=== PATIENT | male | born 1970 | race Caucasian/White ===

== ENCOUNTER 2017-03-20 06:46 | Emergency (ER) | payer MEDICAID ==
[~2017-03-20 06:46] MED LIST: ARIP20TA PO
== END 2017-03-20 07:23 | disposition left against medical advice (07) ==
LOC: EMS 06:46
DX: Z00.8 Encounter for other general examination (principal); Z53.21 Procedure and treatment not carried out due to patient leaving prior to being seen by health care provider

== ENCOUNTER 2017-05-22 18:36 | Inpatient (IN) | payer MEDICAID ==
[~2017-05-22] VITALS: Ht 182.9 cm; Wt 85.0 kg
[2017-05-22 19:11] LABS: BASOPHILS % (AUTO) 0.9 % (0.0-2.0); EOSINOPHILS % (AUTO) 2.9 % (1.0-6.0); HEMATOCRIT 40.8 % (41-53); HEMOGLOBIN 13.6 g/dL (13.5-17.5); LYMPHOCYTES # (AUTO) 1.3 K/uL (1.0-4.8); LYMPHOCYTES % (AUTO) 21.8 % (22.0-44.0); MEAN CORPUSCULAR HEMOGLOBIN 26.3 pg (26.0-34.0); MEAN CORPUSCULAR HGB CONC 33.4 G/dL (31.0-37.0); MEAN CORPUSCULAR VOLUME 79 fL (80-100); MONOCYTES # (AUTO) 0.4 K/uL (0.1-1.0); MONOCYTES % (AUTO) 7.1 % (2.0-9.0); NEUTROPHILS % (AUTO) 67.3 % (40.0-70.0); PLATELET COUNT (AUTO) 366 K/uL (150-450); RED BLOOD CELL COUNT(AUTO) 5.18 MIL/uL (4.50-5.90); RED CELL DISTRIBUTION WIDTH 17.6 % (11.5-14.5)
[2017-05-22] MEDS ORDERED: SODIUM CHLORIDE 0.9% 1,000 ML IV ONE (19:15)
[2017-05-22] MEDS ORDERED: RISP4 PO (19:20)
[2017-05-22 19:21] LABS: ANION GAP 7 mmol/L (8-16); CALCIUM, TOTAL 8.7 mg/dL (8.8-10.5); CARBON DIOXIDE 30 mmol/L (22-29); CHLORIDE 105 mmol/L (98-107); CREATININE 0.89 mg/dL (0.60-1.30); GLOMERULAR FILTR. RATE CALC > 60 mL/min (>60); GLUCOSE,RANDOM 95 mg/dL (70-110); POTASSIUM 4.3 mmol/L (3.5-5.1); SODIUM SERUM 142 mmol/L (136-145); UREA NITROGEN, BLOOD 14 mg/dL (7-18)
[2017-05-22 19:26] LABS: ALANINE AMINOTRANSFERASE 21 U/L (12-78); ALBUMIN 3.7 g/dL (3.4-5.0); ALKALINE PHOSPHATASE 75 U/L (46-116); ASPARTATE AMINOTRANSFERASE 17 U/L (15-37); BILIRUBIN,TOTAL 0.5 mg/dL (0.1-1.0); TOTAL PROTEIN, SERUM 7.7 g/dL (6.4-8.2)
[2017-05-22] MEDS ORDERED: HALOPERIDOL 5 MG TABLET PO ONE (19:45)
[2017-05-22 19:58] LABS: AMPHET/METH SCREEN,URINE POSITIVE (NEGATIVE); BARBITURATE SCREEN, URINE NEGATIVE (NEGATIVE); BENZODIAZEPINES SCREEN,URINE NEGATIVE (NEGATIVE); CANNABINOID SCREEN,URINE NEGATIVE (NEGATIVE); COCAINE SCREEN,URINE NEGATIVE (NEGATIVE); METHADONE SCREEN, URINE NEGATIVE (NEGATIVE); OPIATE SCREEN,URINE NEGATIVE (NEGATIVE)
[2017-05-22 20:08] LABS: PHENCYCLIDINE SCREEN,URINE NEGATIVE (NEGATIVE)
[2017-05-22] MEDS ORDERED: LORazepam 2 MG TABLET PO PRN (20:15)
[2017-05-22] MEDS ORDERED: HALOPERIDOL 5 MG TABLET PO PRN (20:15)
[2017-05-22] MEDS ORDERED: ZOLPIDEM TARTRATE 10 MG TABLET PO PRN (20:15)
[2017-05-22 21:15] VITALS: BP 113/70
[2017-05-22 22:23] LABS: APPEARANCE,URINE CLEAR (CLEAR); BILIRUBIN,URINE NEGATIVE (NEGATIVE); GLUCOSE, URINE (UA) NEGATIVE (NEGATIVE); KETONES,URINE NEGATIVE (NEGATIVE); LEUKOCYTE ESTERASE ,URINE NEGATIVE (NEGATIVE); NITRATE,URINE NEGATIVE (NEGATIVE); OCCULT BLOOD,URINE NEGATIVE (NEGATIVE); PH,URINE 5.5 (5.0-8.0); PROTEIN,URINE NEGATIVE (NEGATIVE)
[2017-05-23] MEDS: FERROUS SULFATE 325 MG EC TABLET PO SCH ×2 (06:56→17:16)
[2017-05-23 07:58] LABS: CHOL/HDL RATIO 2.3 (4.2-7.3)
[2017-05-23 08:45] VITALS: BP 115/71
[2017-05-23] MEDS: ATORVASTATIN CALCIUM 20 MG TABLET PO SCH (09:20)
[2017-05-23] MEDS: CLOPIDOGREL BISULFATE 75 MG TABLET PO SCH (09:20)
[2017-05-23] MEDS: FAMOTIDINE 20 MG TABLET PO SCH ×2 (09:21→17:16)
[2017-05-23] MEDS ORDERED: ACETAMINOPHEN 325 MG TABLET PO PRN (15:30)
[2017-05-23 20:52] VITALS: BP 110/71
[2017-05-24 01:58] VITALS: BP 121/70
[2017-05-24] MEDS: FERROUS SULFATE 325 MG EC TABLET PO SCH ×2 (06:38→16:56)
[2017-05-24 08:49] VITALS: BP 116/62
[2017-05-24] MEDS: ARIPiprazole 15 MG TABLET PO SCH (10:51)
[2017-05-24] MEDS: FAMOTIDINE 20 MG TABLET PO SCH ×2 (10:51→16:56)
[2017-05-24] MEDS: ATORVASTATIN CALCIUM 20 MG TABLET PO SCH (10:52)
[2017-05-24] MEDS: CLOPIDOGREL BISULFATE 75 MG TABLET PO SCH (10:53)
[2017-05-24 16:52] VITALS: BP 118/65
[2017-05-25] MEDS: FERROUS SULFATE 325 MG EC TABLET PO SCH ×2 (07:03→17:51)
[2017-05-25 09:09] VITALS: BP 124/69
[2017-05-25] MEDS: FAMOTIDINE 20 MG TABLET PO SCH ×2 (09:13→17:51)
[2017-05-25] MEDS: ATORVASTATIN CALCIUM 20 MG TABLET PO SCH (09:13)
[2017-05-25] MEDS: ARIPiprazole 15 MG TABLET PO SCH (09:13)
[2017-05-25] MEDS: CLOPIDOGREL BISULFATE 75 MG TABLET PO SCH (09:14)
[2017-05-25 16:19] VITALS: BP 102/57
[2017-05-26] MEDS: FERROUS SULFATE 325 MG EC TABLET PO SCH ×2 (07:08→17:12)
[2017-05-26] MEDS: CLOPIDOGREL BISULFATE 75 MG TABLET PO SCH (09:29)
[2017-05-26] MEDS: FAMOTIDINE 20 MG TABLET PO SCH ×2 (09:29→17:12)
[2017-05-26] MEDS: ATORVASTATIN CALCIUM 20 MG TABLET PO SCH (09:30)
[2017-05-26] MEDS: ARIPiprazole 15 MG TABLET PO SCH (09:30)
[2017-05-26 09:48] VITALS: BP 119/77
[2017-05-26 16:39] VITALS: BP 116/56
[2017-05-27] MEDS: FERROUS SULFATE 325 MG EC TABLET PO SCH ×2 (06:50→17:33)
[2017-05-27 08:49] VITALS: BP 98/78
[2017-05-27] MEDS: CLOPIDOGREL BISULFATE 75 MG TABLET PO SCH (09:19)
[2017-05-27] MEDS: FAMOTIDINE 20 MG TABLET PO SCH ×2 (09:19→17:33)
[2017-05-27] MEDS: ATORVASTATIN CALCIUM 20 MG TABLET PO SCH (09:19)
[2017-05-27] MEDS: ARIPiprazole 15 MG TABLET PO SCH (09:19)
[2017-05-27 18:00] VITALS: BP 110/72
[2017-05-28] MEDS: FERROUS SULFATE 325 MG EC TABLET PO SCH ×2 (06:48→17:58)
[2017-05-28 08:32] VITALS: BP 104/58
[2017-05-28] MEDS: FAMOTIDINE 20 MG TABLET PO SCH ×2 (09:53→17:00)
[2017-05-28] MEDS: CLOPIDOGREL BISULFATE 75 MG TABLET PO SCH (09:53)
[2017-05-28] MEDS: ATORVASTATIN CALCIUM 20 MG TABLET PO SCH (09:53)
[2017-05-28] MEDS: ARIPiprazole 15 MG TABLET PO SCH (09:53)
[2017-05-28] MEDS ORDERED: ARIP15TA2 PO (17:39)
[2017-05-28] MEDS ORDERED: FERR-89 PO (17:47)
[2017-05-28] MEDS ORDERED: CLOP75 PO (17:47)
[2017-05-28] MEDS ORDERED: FAMO20 PO (17:47)
[2017-05-28] MEDS ORDERED: ATOR20TA86 PO (17:48)
== END 2017-05-28 18:30 | disposition home or self-care (01) | DRG 750 ==
LOC: EMS 18:39 → 3EI 20:30
PROVIDERS: ADMIT Psychiatry & Neurology Psychiatry; ATTEND Psychiatry & Neurology Psychiatry
DX: F25.0 Schizoaffective disorder, bipolar type (principal); R45.851 Suicidal ideations; F32.9 Major depressive disorder, single episode, unspecified; E78.5 Hyperlipidemia, unspecified; F17.210 Nicotine dependence, cigarettes, uncomplicated; F15.90 Other stimulant use, unspecified, uncomplicated; J45.909 Unspecified asthma, uncomplicated; Z86.718 Personal history of other venous thrombosis and embolism; Z88.0 Allergy status to penicillin; Z79.899 Other long term (current) drug therapy; Z90.49 Acquired absence of other specified parts of digestive tract
CPT/HCPCS: 93970; 99285; G0480

== ENCOUNTER 2017-07-31 19:26 | Inpatient (IN) | payer MEDICAID ==
[~2017-07-31] VITALS: Ht 182.9 cm; Wt 90.3 kg
[~2017-07-31 19:26] MED LIST changes: +ARIP15TA2 PO; -ARIP20TA PO; +ATOR20TA86 PO; +CLOP75 PO; +FAMO20 PO; +FERR-89 PO
[2017-07-31] MEDS ORDERED: ZOLPIDEM TARTRATE 10 MG TABLET PO PRN (20:30)
[2017-07-31] MEDS ORDERED: HALOPERIDOL 5 MG TABLET PO PRN (20:30)
[2017-07-31 21:05] VITALS: BP 113/62
[2017-07-31 21:12] VITALS: BP 103/62
[2017-08-01 05:28] VITALS: BP 101/64
[2017-08-01 07:57] LABS: EOSINOPHILS % (AUTO) 5.7 % (1.0-6.0); HEMATOCRIT 40.5 % (41-53); HEMOGLOBIN 13.7 g/dL (13.5-17.5); LYMPHOCYTES # (AUTO) 1.5 K/uL (1.0-4.8); LYMPHOCYTES % (AUTO) 24.7 % (22.0-44.0); MEAN CORPUSCULAR HEMOGLOBIN 27.2 pg (26.0-34.0); MEAN CORPUSCULAR HGB CONC 33.9 G/dL (31.0-37.0); MEAN CORPUSCULAR VOLUME 80 fL (80-100); MONOCYTES # (AUTO) 0.3 K/uL (0.1-1.0); MONOCYTES % (AUTO) 5.1 % (2.0-9.0); NEUTROPHILS # (AUTO) 3.9 K/uL (1.8-7.7); NEUTROPHILS % (AUTO) 63.5 % (40.0-70.0); PLATELET COUNT (AUTO) 420 K/uL (150-450); RED BLOOD CELL COUNT(AUTO) 5.04 MIL/uL (4.50-5.90); RED CELL DISTRIBUTION WIDTH 17.4 % (11.5-14.5)
[2017-08-01 08:16] LABS: HEMOGLOBIN A1C 5.3 % (4.5-6.2)
[2017-08-01 08:23] LABS: ALANINE AMINOTRANSFERASE 18 U/L (12-78); ALBUMIN 2.9 g/dL (3.4-5.0); ALKALINE PHOSPHATASE 72 U/L (46-116); ANION GAP 5 mmol/L (8-16); ASPARTATE AMINOTRANSFERASE 12 U/L (15-37); CALCIUM, TOTAL 8.5 mg/dL (8.8-10.5); CARBON DIOXIDE 31 mmol/L (22-29); CHLORIDE 109 mmol/L (98-107); CHOL/HDL RATIO 3.4 (4.2-7.3); CHOLESTEROL 106 mg/dL (131-200); FREE T4 (FREE THYROXINE) 0.67 ng/dL (0.76-1.46); GLOMERULAR FILTR. RATE CALC > 60 mL/min (>60); GLUCOSE,RANDOM 91 mg/dL (70-110); HDL CHOLESTEROL 31 mg/dL (40-60); LDL CHOL (CALC.) 44 mg/dL (0-130); POTASSIUM 3.5 mmol/L (3.5-5.1); SODIUM SERUM 145 mmol/L (136-145); TOTAL PROTEIN, SERUM 6.8 g/dL (6.4-8.2); TRIGLYCERIDES 156 mg/dL (15-150); UREA NITROGEN, BLOOD 7 mg/dL (7-18)
[2017-08-01 08:33] LABS: BILIRUBIN,TOTAL 0.2 mg/dL (0.1-1.0)
[2017-08-01 08:38] VITALS: BP 108/77
[2017-08-01 08:45] LABS: INR 0.9 (0.9-1.1); PROTHROMBIN TIME 9.9 SEC (9.4-11.6)
[2017-08-01] MEDS: BACITRACIN 28.4 GM OINTMENT TP SCH ×2 (08:46→16:21)
[2017-08-01] MEDS: CLOPIDOGREL BISULFATE 75 MG TABLET PO SCH (12:43)
[2017-08-01] MEDS: FAMOTIDINE 20 MG TABLET PO SCH (16:20)
[2017-08-01 16:36] VITALS: BP 105/68
[2017-08-01] MEDS ORDERED: FAMOTIDINE 20 MG TABLET PO SCH (17:00)
[2017-08-02 06:42] VITALS: BP 121/68
[2017-08-02] MEDS: ARIPiprazole 15 MG TABLET PO SCH (09:14)
[2017-08-02] MEDS: ATORVASTATIN CALCIUM 20 MG TABLET PO SCH (09:14)
[2017-08-02] MEDS: BACITRACIN 28.4 GM OINTMENT TP SCH ×2 (09:15→17:32)
[2017-08-02] MEDS: CLOPIDOGREL BISULFATE 75 MG TABLET PO SCH (09:15)
[2017-08-02] MEDS: FAMOTIDINE 20 MG TABLET PO SCH (09:15)
[2017-08-02 09:44] VITALS: BP 121/60
[2017-08-02] MEDS: LORazepam 2 MG TABLET PO PRN (13:37)
[2017-08-02 16:13] VITALS: BP 114/64
[2017-08-03 07:04] VITALS: BP 121/62
[2017-08-03 08:01] LABS: PROTHROMBIN TIME 10.1 SEC (9.4-11.6)
[2017-08-03 08:16] VITALS: BP 121/65
[2017-08-03] MEDS: LORazepam 2 MG TABLET PO PRN (08:31)
[2017-08-03] MEDS: ARIPiprazole 15 MG TABLET PO SCH (08:31)
[2017-08-03] MEDS: FAMOTIDINE 20 MG TABLET PO SCH (08:31)
[2017-08-03] MEDS: CLOPIDOGREL BISULFATE 75 MG TABLET PO SCH (08:31)
[2017-08-03] MEDS: BACITRACIN 28.4 GM OINTMENT TP SCH ×2 (08:31→16:27)
[2017-08-03] MEDS: ATORVASTATIN CALCIUM 20 MG TABLET PO SCH (08:31)
[2017-08-03 16:30] VITALS: BP 105/63
[2017-08-04 00:15] VITALS: BP 109/72
[2017-08-04 08:26] VITALS: BP 110/70
[2017-08-04 08:30] LABS: PROTHROMBIN TIME 10.2 SEC (9.4-11.6)
[2017-08-04] MEDS: CLOPIDOGREL BISULFATE 75 MG TABLET PO SCH (08:54)
[2017-08-04] MEDS: ARIPiprazole 15 MG TABLET PO SCH (08:54)
[2017-08-04] MEDS: LORazepam 2 MG TABLET PO PRN (08:54)
[2017-08-04] MEDS: FAMOTIDINE 20 MG TABLET PO SCH (08:54)
[2017-08-04] MEDS: BACITRACIN 28.4 GM OINTMENT TP SCH ×2 (08:54→17:10)
[2017-08-04] MEDS: ATORVASTATIN CALCIUM 20 MG TABLET PO SCH (08:54)
[2017-08-04 16:46] VITALS: BP 120/74
[2017-08-05 02:20] VITALS: BP 106/71
[2017-08-05 08:37] VITALS: BP 110/71
[2017-08-05] MEDS: CLOPIDOGREL BISULFATE 75 MG TABLET PO SCH (08:43)
[2017-08-05] MEDS: FAMOTIDINE 20 MG TABLET PO SCH (08:43)
[2017-08-05] MEDS: BACITRACIN 28.4 GM OINTMENT TP SCH ×2 (08:43→16:21)
[2017-08-05] MEDS: ARIPiprazole 15 MG TABLET PO SCH (08:43)
[2017-08-05] MEDS: ATORVASTATIN CALCIUM 20 MG TABLET PO SCH (08:43)
[2017-08-05] MEDS: LORazepam 2 MG TABLET PO PRN (09:13)
[2017-08-05 16:21] VITALS: BP 120/73
[2017-08-06 05:10] VITALS: BP_SYST 115; BP_SYST 120; BP_DIAS 67; BP_DIAS 75
[2017-08-06] MEDS: ATORVASTATIN CALCIUM 20 MG TABLET PO SCH (08:33)
[2017-08-06] MEDS: FAMOTIDINE 20 MG TABLET PO SCH (08:33)
[2017-08-06] MEDS: ARIPiprazole 15 MG TABLET PO SCH (08:33)
[2017-08-06] MEDS: BACITRACIN 28.4 GM OINTMENT TP SCH ×2 (08:33→17:22)
[2017-08-06] MEDS: CLOPIDOGREL BISULFATE 75 MG TABLET PO SCH (08:33)
[2017-08-06 08:42] VITALS: BP 111/71
[2017-08-06 16:33] VITALS: BP 104/60
[2017-08-07 06:50] VITALS: BP 108/64
[2017-08-07] MEDS: CLOPIDOGREL BISULFATE 75 MG TABLET PO SCH (08:41)
[2017-08-07] MEDS: ARIPiprazole 15 MG TABLET PO SCH (08:41)
[2017-08-07] MEDS: ATORVASTATIN CALCIUM 20 MG TABLET PO SCH (08:41)
[2017-08-07 08:46] VITALS: BP 120/75
[2017-08-07] MEDS: FAMOTIDINE 20 MG TABLET PO SCH (08:47)
[2017-08-07] MEDS ORDERED: BACI30OI6 TP (08:52)
[2017-08-07] MEDS ORDERED: FAMO20 PO (08:52)
[2017-08-07] MEDS: BACITRACIN 28.4 GM OINTMENT TP SCH (09:27)
== END 2017-08-07 12:15 | disposition home or self-care (01) | DRG 750 ==
LOC: B2S 20:24
PROVIDERS: ADMIT Psychiatry & Neurology Psychiatry; ATTEND Psychiatry & Neurology Psychiatry
DX: F20.0 Paranoid schizophrenia (principal); Z59.0 Homelessness; J44.9 Chronic obstructive pulmonary disease, unspecified; E78.5 Hyperlipidemia, unspecified; F15.90 Other stimulant use, unspecified, uncomplicated; F19.10 Other psychoactive substance abuse, uncomplicated; F17.200 Nicotine dependence, unspecified, uncomplicated; Z86.718 Personal history of other venous thrombosis and embolism; Z90.49 Acquired absence of other specified parts of digestive tract
CPT/HCPCS: 83036; 84439; 84443

== ENCOUNTER 2017-09-11 12:50 | Inpatient (IN) | payer MEDICAID ==
[~2017-09-11] VITALS: Ht 182.9 cm; Wt 89.8 kg
[~2017-09-11 12:50] MED LIST changes: +BACI30OI6 TP; -FERR-89 PO
[2017-09-11 14:27] LABS: ALANINE AMINOTRANSFERASE 20 U/L (12-78); ALBUMIN 3.3 g/dL (3.4-5.0); ALKALINE PHOSPHATASE 69 U/L (46-116); ANION GAP 6 mmol/L (8-16); ASPARTATE AMINOTRANSFERASE 13 U/L (15-37); BILIRUBIN,TOTAL 0.3 mg/dL (0.1-1.0); CALCIUM, TOTAL 8.4 mg/dL (8.8-10.5); CARBON DIOXIDE 28 mmol/L (22-29); CHLORIDE 108 mmol/L (98-107); CREATININE 0.93 mg/dL (0.60-1.30); GLOMERULAR FILTR. RATE CALC > 60 mL/min (>60); GLUCOSE,RANDOM 121 mg/dL (70-110); POTASSIUM 3.2 mmol/L (3.5-5.1); SODIUM SERUM 142 mmol/L (136-145); TOTAL PROTEIN, SERUM 7.3 g/dL (6.4-8.2); UREA NITROGEN, BLOOD 6 mg/dL (7-18)
[2017-09-11 14:28] LABS: BASOPHILS % (AUTO) 1.1 % (0.0-2.0); EOSINOPHILS % (AUTO) 2.6 % (1.0-6.0); HEMATOCRIT 42.1 % (41-53); HEMOGLOBIN 14.7 g/dL (13.5-17.5); LYMPHOCYTES # (AUTO) 1.3 K/uL (1.0-4.8); LYMPHOCYTES % (AUTO) 21.6 % (22.0-44.0); MEAN CORPUSCULAR HEMOGLOBIN 27.5 pg (26.0-34.0); MEAN CORPUSCULAR HGB CONC 34.8 G/dL (31.0-37.0); MEAN CORPUSCULAR VOLUME 79 fL (80-100); MONOCYTES # (AUTO) 0.2 K/uL (0.1-1.0); MONOCYTES % (AUTO) 4.1 % (2.0-9.0); NEUTROPHILS # (AUTO) 4.3 K/uL (1.8-7.7); NEUTROPHILS % (AUTO) 70.6 % (40.0-70.0); PLATELET COUNT (AUTO) 390 K/uL (150-450); RED BLOOD CELL COUNT(AUTO) 5.34 MIL/uL (4.50-5.90); RED CELL DISTRIBUTION WIDTH 16.5 % (11.5-14.5)
[2017-09-11] MEDS ORDERED: HALOPERIDOL 5 MG TABLET PO PRN (15:30)
[2017-09-11] MEDS ORDERED: LORazepam 2 MG TABLET PO PRN (15:30)
[2017-09-11] MEDS ORDERED: ZOLPIDEM TARTRATE 10 MG TABLET PO PRN (15:30)
[2017-09-11 17:18] LABS: AMPHET/METH SCREEN,URINE NEGATIVE (NEGATIVE); BARBITURATE SCREEN, URINE NEGATIVE (NEGATIVE); BENZODIAZEPINES SCREEN,URINE NEGATIVE (NEGATIVE); CANNABINOID SCREEN,URINE NEGATIVE (NEGATIVE); COCAINE SCREEN,URINE NEGATIVE (NEGATIVE); METHADONE SCREEN, URINE NEGATIVE (NEGATIVE); OPIATE SCREEN,URINE NEGATIVE (NEGATIVE); PHENCYCLIDINE SCREEN,URINE NEGATIVE (NEGATIVE)
[2017-09-11] MEDS ORDERED: POTASSIUM CHLORIDE 10% 40 MEQ/30 ML LIQUID UDCUP PO ONE (19:30)
[2017-09-11] MEDS ORDERED: POTASSIUM CHLORIDE 10% 40 MEQ/30 ML LIQUID UDCUP ONE (19:37)
[2017-09-11] MEDS ORDERED: IBUPROFEN 400 MG TABLET PO ONE (22:45)
[2017-09-12 00:01] VITALS: BP 113/74
[2017-09-12 08:31] VITALS: BP 110/76
[2017-09-12] MEDS: CLOPIDOGREL BISULFATE 75 MG TABLET PO SCH (09:00)
[2017-09-12] MEDS: ATORVASTATIN CALCIUM 20 MG TABLET PO SCH (09:00)
[2017-09-12] MEDS: FAMOTIDINE 20 MG TABLET PO SCH (09:00)
[2017-09-12 16:44] VITALS: BP 109/60
[2017-09-12] MEDS: BACITRACIN 28.4 GM OINTMENT TP SCH (17:44)
[2017-09-12] MEDS ORDERED: DOCUSATE SODIUM 100 MG CAPSULE PO PRN (21:45)
[2017-09-12] MEDS ORDERED: ONDANSETRON HCL 4 MG TABLET PO PRN (21:45)
[2017-09-12] MEDS ORDERED: MAG HYDROX/AL HYDROX/SIMETH ES 30 ML SUSPENSION UDCUP PO PRN (21:45)
[2017-09-12] MEDS ORDERED: PETROLATUM,WHITE 71 GM JELLY TP PRN (21:45)
[2017-09-12] MEDS ORDERED: ALBUTEROL SULFATE HFA 90 MCG/PUFF 8 GM INHALER IH PRN (21:45)
[2017-09-12] MEDS ORDERED: MAGNESIUM HYDROXIDE SUSPENSION 30 ML UDCUP PO PRN (21:45)
[2017-09-12] MEDS ORDERED: ACETAMINOPHEN 325 MG TABLET PO PRN (21:45)
[2017-09-13 05:48] VITALS: BP 118/70
[2017-09-13 08:02] LABS: HEMOGLOBIN A1C 5.6 % (4.5-6.2)
[2017-09-13 08:21] LABS: CHOL/HDL RATIO 3.3 (4.2-7.3); FREE T4 (FREE THYROXINE) 0.58 ng/dL (0.76-1.46); POTASSIUM 4.1 mmol/L (3.5-5.1); THYROID STIMULATING HORMONE 0.69 uIU/mL (0.36-3.74)
[2017-09-13 08:38] VITALS: BP 107/67
[2017-09-13] MEDS: ATORVASTATIN CALCIUM 20 MG TABLET PO SCH (08:49)
[2017-09-13] MEDS: CLOPIDOGREL BISULFATE 75 MG TABLET PO SCH (08:49)
[2017-09-13] MEDS: NICOTINE 14 MG/24 HOUR PATCH TD SCH (08:49)
[2017-09-13] MEDS: FAMOTIDINE 20 MG TABLET PO SCH (08:49)
[2017-09-13] MEDS: BACITRACIN 28.4 GM OINTMENT TP SCH ×2 (08:50→18:10)
[2017-09-13 16:07] VITALS: BP 108/69
[2017-09-14 00:41] VITALS: BP 109/61
[2017-09-14 08:00] VITALS: BP 112/62
[2017-09-14] MEDS: CLOPIDOGREL BISULFATE 75 MG TABLET PO SCH (08:58)
[2017-09-14] MEDS: ATORVASTATIN CALCIUM 20 MG TABLET PO SCH (08:58)
[2017-09-14] MEDS: NICOTINE 14 MG/24 HOUR PATCH TD SCH (08:58)
[2017-09-14] MEDS: ARIPiprazole 15 MG TABLET PO SCH (08:58)
[2017-09-14] MEDS: FAMOTIDINE 20 MG TABLET PO SCH (08:58)
[2017-09-14] MEDS: BACITRACIN 28.4 GM OINTMENT TP SCH ×2 (08:59→17:10)
[2017-09-14 16:17] VITALS: BP 100/60
[2017-09-15 05:42] VITALS: BP 105/60
[2017-09-15 08:23] VITALS: BP 111/65
[2017-09-15] MEDS: FAMOTIDINE 20 MG TABLET PO SCH (09:58)
[2017-09-15] MEDS: ARIPiprazole 15 MG TABLET PO SCH (09:58)
[2017-09-15] MEDS: BACITRACIN 28.4 GM OINTMENT TP SCH ×2 (09:58→16:23)
[2017-09-15] MEDS: ATORVASTATIN CALCIUM 20 MG TABLET PO SCH (09:58)
[2017-09-15] MEDS: CLOPIDOGREL BISULFATE 75 MG TABLET PO SCH (09:58)
[2017-09-15] MEDS: NICOTINE 14 MG/24 HOUR PATCH TD SCH (10:07)
[2017-09-15 16:36] VITALS: BP 109/65
[2017-09-15 21:36] VITALS: BP 110/68
[2017-09-15] MEDS: IBUPROFEN 400 MG TABLET PO PRN (21:36)
[2017-09-16 04:30] VITALS: BP 112/66
[2017-09-16 08:37] VITALS: BP 107/68
[2017-09-16] MEDS: ARIPiprazole 15 MG TABLET PO SCH (08:41)
[2017-09-16] MEDS: NICOTINE 14 MG/24 HOUR PATCH TD SCH (08:41)
[2017-09-16] MEDS: BACITRACIN 28.4 GM OINTMENT TP SCH ×2 (08:41→17:26)
[2017-09-16] MEDS: CLOPIDOGREL BISULFATE 75 MG TABLET PO SCH (08:41)
[2017-09-16] MEDS: ATORVASTATIN CALCIUM 20 MG TABLET PO SCH (08:41)
[2017-09-16] MEDS: FAMOTIDINE 20 MG TABLET PO SCH (08:41)
[2017-09-16 16:06] VITALS: BP 115/62
[2017-09-17 06:46] VITALS: BP 120/72
[2017-09-17 08:33] VITALS: BP 106/66
[2017-09-17] MEDS: FAMOTIDINE 20 MG TABLET PO SCH (09:11)
[2017-09-17] MEDS: ATORVASTATIN CALCIUM 20 MG TABLET PO SCH (09:11)
[2017-09-17] MEDS: BACITRACIN 28.4 GM OINTMENT TP SCH ×2 (09:11→16:07)
[2017-09-17] MEDS: CLOPIDOGREL BISULFATE 75 MG TABLET PO SCH (09:11)
[2017-09-17] MEDS: ARIPiprazole 15 MG TABLET PO SCH (09:11)
[2017-09-17] MEDS: NICOTINE 14 MG/24 HOUR PATCH TD SCH (09:15)
[2017-09-17 16:08] VITALS: BP 110/71
[2017-09-17 18:00] VITALS: BP 114/70
[2017-09-17] MEDS: IBUPROFEN 400 MG TABLET PO PRN (18:00)
[2017-09-18 00:34] VITALS: BP 120/86
[2017-09-18 08:00] VITALS: BP 108/64
[2017-09-18] MEDS: ATORVASTATIN CALCIUM 20 MG TABLET PO SCH (08:33)
[2017-09-18] MEDS: NICOTINE 14 MG/24 HOUR PATCH TD SCH (08:33)
[2017-09-18] MEDS: ARIPiprazole 15 MG TABLET PO SCH (08:33)
[2017-09-18] MEDS: CLOPIDOGREL BISULFATE 75 MG TABLET PO SCH (08:33)
[2017-09-18] MEDS: FAMOTIDINE 20 MG TABLET PO SCH (08:33)
[2017-09-18] MEDS: BACITRACIN 28.4 GM OINTMENT TP SCH ×2 (08:33→17:13)
[2017-09-18 16:33] VITALS: BP 112/63
[2017-09-19 01:37] VITALS: BP 111/60
[2017-09-19 08:00] VITALS: BP 126/71
[2017-09-19] MEDS: NICOTINE 14 MG/24 HOUR PATCH TD SCH (09:00)
[2017-09-19] MEDS: FAMOTIDINE 20 MG TABLET PO SCH (09:45)
[2017-09-19] MEDS: ATORVASTATIN CALCIUM 20 MG TABLET PO SCH (09:45)
[2017-09-19] MEDS: ARIPiprazole 15 MG TABLET PO SCH (09:45)
[2017-09-19] MEDS: BACITRACIN 28.4 GM OINTMENT TP SCH ×2 (09:46→16:03)
[2017-09-19] MEDS: CLOPIDOGREL BISULFATE 75 MG TABLET PO SCH (09:50)
[2017-09-19 16:07] VITALS: BP 109/63
[2017-09-19 18:17] VITALS: BP 112/64
[2017-09-19] MEDS: IBUPROFEN 400 MG TABLET PO PRN (18:17)
[2017-09-20 01:37] VITALS: BP 107/60
[2017-09-20 08:46] VITALS: BP 103/60
[2017-09-20] MEDS: FAMOTIDINE 20 MG TABLET PO SCH (08:56)
[2017-09-20] MEDS: BACITRACIN 28.4 GM OINTMENT TP SCH (08:56)
[2017-09-20] MEDS: ARIPiprazole 15 MG TABLET PO SCH (08:56)
[2017-09-20] MEDS: NICOTINE 14 MG/24 HOUR PATCH TD SCH (08:57)
[2017-09-20] MEDS: CLOPIDOGREL BISULFATE 75 MG TABLET PO SCH (08:57)
[2017-09-20] MEDS: ATORVASTATIN CALCIUM 20 MG TABLET PO SCH (08:57)
== END 2017-09-20 22:08 | disposition home or self-care (01) | DRG 750 ==
LOC: EMS 12:52 → 3EI 19:00 → UNDOADMIN 19:00 → B2S 21:30
PROVIDERS: ADMIT Psychiatry & Neurology Psychiatry; ATTEND Psychiatry & Neurology Psychiatry
DX: F25.9 Schizoaffective disorder, unspecified (principal); J44.9 Chronic obstructive pulmonary disease, unspecified; E03.9 Hypothyroidism, unspecified; E78.5 Hyperlipidemia, unspecified; K21.9 Gastro-esophageal reflux disease without esophagitis; F19.10 Other psychoactive substance abuse, uncomplicated; Z79.51 Long term (current) use of inhaled steroids; E87.6 Hypokalemia; F15.90 Other stimulant use, unspecified, uncomplicated; F41.9 Anxiety disorder, unspecified; F17.210 Nicotine dependence, cigarettes, uncomplicated; Z71.6 Tobacco abuse counseling; Z86.718 Personal history of other venous thrombosis and embolism; Z71.51 Drug abuse counseling and surveillance of drug abuser; Z79.899 Other long term (current) drug therapy; Z90.49 Acquired absence of other specified parts of digestive tract; Z88.0 Allergy status to penicillin
CPT/HCPCS: 83036; 84132; 84439; 84443; 99285; G0480

== ENCOUNTER 2018-04-07 18:01 | Emergency (ER) | payer MEDICAID, OTHER ==
[~2018-04-07 18:01] MED LIST changes: -BACI30OI6 TP
[2018-04-07 19:01] LABS: BASOPHILS % (AUTO) 0.7 % (0.0-2.0); HEMATOCRIT 39.6 % (41-53); HEMOGLOBIN 13.1 g/dL (13.5-17.5); LYMPHOCYTES # (AUTO) 1.5 K/uL (1.0-4.8); LYMPHOCYTES % (AUTO) 16.3 % (22.0-44.0); MEAN CORPUSCULAR HEMOGLOBIN 26.7 pg (26.0-34.0); MEAN CORPUSCULAR HGB CONC 33.1 G/dL (31.0-37.0); MEAN CORPUSCULAR VOLUME 81 fL (80-100); MONOCYTES # (AUTO) 0.7 K/uL (0.1-1.0); PLATELET COUNT (AUTO) 469 K/uL (150-450); RED BLOOD CELL COUNT(AUTO) 4.92 MIL/uL (4.50-5.90); RED CELL DISTRIBUTION WIDTH 15.8 % (11.5-14.5)
[2018-04-07 19:28] LABS: ANION GAP 8 mmol/L (8-16); CALCIUM, TOTAL 8.8 mg/dL (8.8-10.5); CARBON DIOXIDE 31 mmol/L (22-29); CHLORIDE 105 mmol/L (98-107); CREATININE 0.84 mg/dL (0.60-1.30); GLOMERULAR FILTR. RATE CALC > 60 mL/min (>60); GLUCOSE,RANDOM 116 mg/dL (70-110); POTASSIUM 3.8 mmol/L (3.5-5.1); SODIUM SERUM 144 mmol/L (136-145); UREA NITROGEN, BLOOD 10 mg/dL (7-18)
[2018-04-07 19:33] LABS: ALANINE AMINOTRANSFERASE 14 U/L (12-78); ALBUMIN 3.1 g/dL (3.4-5.0); ALKALINE PHOSPHATASE 89 U/L (46-116); ASPARTATE AMINOTRANSFERASE 13 U/L (15-37); BILIRUBIN,TOTAL 0.2 mg/dL (0.1-1.0); TOTAL PROTEIN, SERUM 7.5 g/dL (6.4-8.2)
[2018-04-07] MEDS ORDERED: ASPI81 PO (22:49)
[2018-04-07] MEDS ORDERED: TAMS0.4C32 PO (22:49)
[2018-04-08] MEDS ORDERED: ARIP5TAB8 PO (13:07)
== END 2018-04-07 22:04 | disposition left against medical advice (07) ==
LOC: EMS 18:02
DX: F29 Unspecified psychosis not due to a substance or known physiological condition (principal); Z53.21 Procedure and treatment not carried out due to patient leaving prior to being seen by health care provider
CPT/HCPCS: 36415; 80053; 85025; G0480

== ENCOUNTER 2018-04-07 22:41 | Inpatient (IN) | payer MEDICAID, OTHER ==
[~2018-04-07] VITALS: Ht 182.9 cm; Wt 86.3 kg
[2018-04-07] MEDS ORDERED: TAMS0.4C32 PO (22:49)
[2018-04-07] MEDS ORDERED: ASPI81 PO (22:49)
[2018-04-07 23:21] LABS: AMPHET/METH SCREEN,URINE POSITIVE (NEGATIVE); BARBITURATE SCREEN, URINE NEGATIVE (NEGATIVE); BENZODIAZEPINES SCREEN,URINE NEGATIVE (NEGATIVE); CANNABINOID SCREEN,URINE NEGATIVE (NEGATIVE); COCAINE SCREEN,URINE NEGATIVE (NEGATIVE); METHADONE SCREEN, URINE NEGATIVE (NEGATIVE); OPIATE SCREEN,URINE NEGATIVE (NEGATIVE); PHENCYCLIDINE SCREEN,URINE NEGATIVE (NEGATIVE)
[2018-04-08] MEDS ORDERED: ZOLPIDEM TARTRATE 10 MG TABLET PO PRN (03:15)
[2018-04-08] MEDS ORDERED: CEPHALEXIN MONOHYDRATE 500 MG CAPSULE PO ONE (03:30)
[2018-04-08] MEDS ORDERED: DOXYCYCLINE HYCLATE 100 MG CAPSULE PO ONE (03:30)
[2018-04-08 06:22] VITALS: BP 110/59
[2018-04-08 07:57] VITALS: BP 120/64
[2018-04-08] MEDS: LORazepam 2 MG TABLET PO PRN ×2 (08:30→12:37)
[2018-04-08] MEDS: HALOPERIDOL 5 MG TABLET PO PRN ×2 (08:30→12:37)
[2018-04-08 09:03] VITALS: BP 120/64
[2018-04-08] MEDS ORDERED: ARIP5TAB8 PO (13:07)
[2018-04-08] MEDS ORDERED: OLANZapine 5 MG RAPDIS TABLET PO PRN (13:15)
[2018-04-08] MEDS ORDERED: ACETAMINOPHEN 325 MG TABLET PO PRN (13:15)
[2018-04-08] MEDS ORDERED: HydrOXYzine PAMOATE 50 MG CAPSULE PO PRN (13:15)
[2018-04-08] MEDS ORDERED: MAG HYDROX/AL HYDROX/SIMETH ES 30 ML SUSPENSION UDCUP PO PRN (13:15)
[2018-04-08] MEDS ORDERED: TUBERCULIN, PURIFIED PROTEIN DERIVATIVE 5 TU/0.1 ML SYG ID ONE (13:15)
[2018-04-08] MEDS ORDERED: MAGNESIUM HYDROXIDE SUSPENSION 30 ML UDCUP PO PRN (13:15)
[2018-04-08] MEDS ORDERED: LOPERAMIDE HCL 2 MG CAPSULE PO PRN (13:15)
[2018-04-08] MEDS ORDERED: GuaiFENesin/D-METHORPHAN [SUGAR-FREE] 200-20MG/10 ML SYRUP UDCUP PO PRN (13:15)
[2018-04-08] MEDS ORDERED: PROMETHAZINE HCL 25 MG TABLET PO PRN (13:15)
[2018-04-08 20:14] VITALS: BP 101/68
[2018-04-08] MEDS ORDERED: OLANZapine 5 MG RAPDIS TABLET PO SCH (21:00)
[2018-04-08] MEDS: THIAMINE HCL 100 MG TABLET PO SCH (21:56)
[2018-04-08] MEDS: DIVALPROEX SODIUM 500 MG ER TABLET PO SCH (21:56)
[2018-04-09 00:30] VITALS: BP 108/64
[2018-04-09 09:21] VITALS: BP 109/60
[2018-04-09] MEDS: THIAMINE HCL 100 MG TABLET PO SCH ×2 (09:27→16:22)
[2018-04-09] MEDS: MULTIVITAMINS WITH MINERALS, THERAPEUTIC TABLET PO SCH (09:27)
[2018-04-09] MEDS: NALTREXONE HCL 50 MG TABLET PO SCH (09:27)
[2018-04-09] MEDS: FOLIC ACID 1 MG TABLET PO SCH (09:27)
[2018-04-09 16:21] VITALS: BP 110/68
[2018-04-09] MEDS: DIVALPROEX SODIUM 500 MG ER TABLET PO SCH (20:25)
[2018-04-09] MEDS: OLANZapine 10 MG RAPDIS TABLET PO SCH (20:26)
[2018-04-10 02:01] VITALS: BP 108/70
[2018-04-10] MEDS: MULTIVITAMINS WITH MINERALS, THERAPEUTIC TABLET PO SCH (09:44)
[2018-04-10] MEDS: THIAMINE HCL 100 MG TABLET PO SCH ×2 (09:44→16:22)
[2018-04-10] MEDS: FOLIC ACID 1 MG TABLET PO SCH (09:44)
[2018-04-10] MEDS: NALTREXONE HCL 50 MG TABLET PO SCH (09:45)
[2018-04-10 16:50] VITALS: BP 108/69
[2018-04-10] MEDS: OLANZapine 10 MG RAPDIS TABLET PO SCH (20:28)
[2018-04-10] MEDS: DIVALPROEX SODIUM 500 MG ER TABLET PO SCH (20:28)
[2018-04-11 01:10] VITALS: BP 103/60
[2018-04-11] MEDS: THIAMINE HCL 100 MG TABLET PO SCH ×2 (08:47→16:22)
[2018-04-11] MEDS: FOLIC ACID 1 MG TABLET PO SCH (08:47)
[2018-04-11] MEDS: NALTREXONE HCL 50 MG TABLET PO SCH (08:47)
[2018-04-11] MEDS: MULTIVITAMINS WITH MINERALS, THERAPEUTIC TABLET PO SCH (08:47)
[2018-04-11 16:30] VITALS: BP 110/60
[2018-04-11] MEDS: DIVALPROEX SODIUM 500 MG ER TABLET PO SCH (20:19)
[2018-04-11] MEDS: OLANZapine 10 MG RAPDIS TABLET PO SCH (20:19)
[2018-04-12 03:54] VITALS: BP 111/63
[2018-04-12 08:52] VITALS: BP 110/64
[2018-04-12] MEDS: FOLIC ACID 1 MG TABLET PO SCH (08:59)
[2018-04-12] MEDS: THIAMINE HCL 100 MG TABLET PO SCH ×2 (08:59→16:42)
[2018-04-12] MEDS: MULTIVITAMINS WITH MINERALS, THERAPEUTIC TABLET PO SCH (08:59)
[2018-04-12] MEDS: NALTREXONE HCL 50 MG TABLET PO SCH (08:59)
[2018-04-12 17:48] VITALS: BP 104/62
[2018-04-12] MEDS: OLANZapine 10 MG RAPDIS TABLET PO SCH (20:12)
[2018-04-12] MEDS: DIVALPROEX SODIUM 500 MG ER TABLET PO SCH (20:12)
[2018-04-13 05:58] VITALS: BP 110/70
[2018-04-13 07:40] LABS: BASOPHILS % (AUTO) 0.8 % (0.0-2.0); EOSINOPHILS % (AUTO) 5.2 % (1.0-6.0); HEMATOCRIT 40.6 % (41-53); HEMOGLOBIN 13.5 g/dL (13.5-17.5); LYMPHOCYTES # (AUTO) 1.4 K/uL (1.0-4.8); LYMPHOCYTES % (AUTO) 26.6 % (22.0-44.0); MEAN CORPUSCULAR HGB CONC 33.3 G/dL (31.0-37.0); MEAN CORPUSCULAR VOLUME 81 fL (80-100); MONOCYTES # (AUTO) 0.3 K/uL (0.1-1.0); MONOCYTES % (AUTO) 4.9 % (2.0-9.0); NEUTROPHILS # (AUTO) 3.4 K/uL (1.8-7.7); NEUTROPHILS % (AUTO) 62.5 % (40.0-70.0); PLATELET COUNT (AUTO) 435 K/uL (150-450); RED BLOOD CELL COUNT(AUTO) 4.99 MIL/uL (4.50-5.90); RED CELL DISTRIBUTION WIDTH 15.8 % (11.5-14.5)
[2018-04-13 07:49] LABS: HEMOGLOBIN A1C 5.6 % (4.5-6.2)
[2018-04-13 08:07] LABS: ALANINE AMINOTRANSFERASE 11 U/L (12-78); ALBUMIN 2.8 g/dL (3.4-5.0); ALKALINE PHOSPHATASE 69 U/L (46-116); ANION GAP 3 mmol/L (8-16); ASPARTATE AMINOTRANSFERASE 10 U/L (15-37); BILIRUBIN,TOTAL 0.2 mg/dL (0.1-1.0); CALCIUM, TOTAL 8.7 mg/dL (8.8-10.5); CARBON DIOXIDE 33 mmol/L (22-29); CHLORIDE 105 mmol/L (98-107); CHOL/HDL RATIO 3.4 (4.2-7.3); CHOLESTEROL 116 mg/dL (131-200); CREATININE 0.78 mg/dL (0.60-1.30); FREE T4 (FREE THYROXINE) 0.68 ng/dL (0.76-1.46); GLOMERULAR FILTR. RATE CALC > 60 mL/min (>60); GLUCOSE,RANDOM 107 mg/dL (70-110); HDL CHOLESTEROL 34 mg/dL (40-60); LDL CHOL (CALC.) 60 mg/dL (0-130); POTASSIUM 3.9 mmol/L (3.5-5.1); SODIUM SERUM 141 mmol/L (136-145); TOTAL PROTEIN, SERUM 7.1 g/dL (6.4-8.2); TRIGLYCERIDES 110 mg/dL (15-150); UREA NITROGEN, BLOOD 15 mg/dL (7-18)
[2018-04-13 08:43] VITALS: BP 118/64
[2018-04-13] MEDS: MULTIVITAMINS WITH MINERALS, THERAPEUTIC TABLET PO SCH ×2 (08:51→08:59)
[2018-04-13] MEDS: THIAMINE HCL 100 MG TABLET PO SCH ×3 (08:51→16:06)
[2018-04-13] MEDS: FOLIC ACID 1 MG TABLET PO SCH ×2 (08:51→08:59)
[2018-04-13] MEDS: NALTREXONE HCL 50 MG TABLET PO SCH ×2 (08:51→08:59)
[2018-04-13 16:29] VITALS: BP 100/62
[2018-04-13] MEDS: DIVALPROEX SODIUM 500 MG ER TABLET PO SCH (20:41)
[2018-04-13] MEDS: OLANZapine 10 MG RAPDIS TABLET PO SCH (20:41)
[2018-04-14 06:27] VITALS: BP 106/72
[2018-04-14] MEDS: THIAMINE HCL 100 MG TABLET PO SCH ×2 (08:59→17:02)
[2018-04-14] MEDS: MULTIVITAMINS WITH MINERALS, THERAPEUTIC TABLET PO SCH (08:59)
[2018-04-14] MEDS: NALTREXONE HCL 50 MG TABLET PO SCH (08:59)
[2018-04-14] MEDS: FOLIC ACID 1 MG TABLET PO SCH (08:59)
[2018-04-14 16:16] VITALS: BP 111/70
[2018-04-14] MEDS: DIVALPROEX SODIUM 500 MG ER TABLET PO SCH (20:26)
[2018-04-14] MEDS: OLANZapine 10 MG RAPDIS TABLET PO SCH (20:27)
[2018-04-14 20:57] VITALS: BP 112/66
[2018-04-15 00:54] VITALS: BP 102/64
[2018-04-15 08:39] VITALS: BP 103/61
[2018-04-15] MEDS: MULTIVITAMINS WITH MINERALS, THERAPEUTIC TABLET PO SCH (09:45)
[2018-04-15] MEDS: THIAMINE HCL 100 MG TABLET PO SCH ×2 (09:45→16:20)
[2018-04-15] MEDS: NALTREXONE HCL 50 MG TABLET PO SCH (09:45)
[2018-04-15] MEDS: FOLIC ACID 1 MG TABLET PO SCH (09:45)
[2018-04-15 16:29] VITALS: BP 104/60
[2018-04-15] MEDS: DIVALPROEX SODIUM 500 MG ER TABLET PO SCH (20:12)
[2018-04-15 20:13] VITALS: BP 110/64
[2018-04-15] MEDS: OLANZapine 10 MG RAPDIS TABLET PO SCH (20:13)
[2018-04-16 00:26] VITALS: BP 128/72
[2018-04-16 09:35] VITALS: BP 120/79
[2018-04-16] MEDS: MULTIVITAMINS WITH MINERALS, THERAPEUTIC TABLET PO SCH (09:47)
[2018-04-16] MEDS: NALTREXONE HCL 50 MG TABLET PO SCH (09:47)
[2018-04-16] MEDS: FOLIC ACID 1 MG TABLET PO SCH (09:47)
[2018-04-16] MEDS: THIAMINE HCL 100 MG TABLET PO SCH ×2 (09:47→16:29)
[2018-04-16 16:11] VITALS: BP 126/82
[2018-04-16] MEDS: DIVALPROEX SODIUM 500 MG ER TABLET PO SCH (20:04)
[2018-04-16] MEDS: OLANZapine 10 MG RAPDIS TABLET PO SCH (20:04)
[2018-04-17 00:48] VITALS: BP 105/62
[2018-04-17] MEDS: THIAMINE HCL 100 MG TABLET PO SCH (08:27)
[2018-04-17] MEDS: FOLIC ACID 1 MG TABLET PO SCH (08:27)
[2018-04-17] MEDS: NALTREXONE HCL 50 MG TABLET PO SCH (08:27)
[2018-04-17] MEDS: MULTIVITAMINS WITH MINERALS, THERAPEUTIC TABLET PO SCH (08:27)
[2018-04-17 08:30] VITALS: BP 119/67
[2018-04-17] MEDS ORDERED: DIVA-78 PO (11:59)
[2018-04-17] MEDS ORDERED: OLAN10TA3 PO (11:59)
[2018-04-17] MEDS ORDERED: NALT50TA6 PO (11:59)
== END 2018-04-17 12:40 | disposition home or self-care (01) | DRG 750 ==
LOC: EMS 22:41 → AHU 04-08 05:30 → B2S 04-08 19:59
PROVIDERS: ADMIT Psychiatry & Neurology Psychiatry; ATTEND Psychiatry & Neurology Psychiatry
DX: F25.9 Schizoaffective disorder, unspecified (principal); R45.851 Suicidal ideations; Z59.0 Homelessness; E78.5 Hyperlipidemia, unspecified; F15.10 Other stimulant abuse, uncomplicated; L03.114 Cellulitis of left upper limb; F17.210 Nicotine dependence, cigarettes, uncomplicated; J45.909 Unspecified asthma, uncomplicated; Z88.0 Allergy status to penicillin
CPT/HCPCS: 10060; 83036; 84439; 84443

== ENCOUNTER 2018-05-27 03:48 | Inpatient (IN) | payer MEDICAID ==
[~2018-05-27] VITALS: Ht 182.9 cm; Wt 91.5 kg
[~2018-05-27 03:48] MED LIST changes: -ARIP15TA2 PO; -ATOR20TA86 PO; -CLOP75 PO; +DIVA-78 PO; -FAMO20 PO; +NALT50TA6 PO; +OLAN10TA3 PO
[2018-05-27] MEDS ORDERED: ZOLPIDEM TARTRATE 10 MG TABLET PO PRN (04:15)
[2018-05-27] MEDS ORDERED: LORazepam 2 MG TABLET PO PRN (04:15)
[2018-05-27] MEDS ORDERED: HALOPERIDOL 5 MG TABLET PO PRN (04:15)
[2018-05-27 06:45] VITALS: BP 122/78
[2018-05-27 08:38] VITALS: BP 115/67
[2018-05-27] MEDS ORDERED: PNEUMOCOCCAL VACCINE POLYVALENT 0.5 ML VIAL [PPSV23] IM ONE (09:15)
[2018-05-27] MEDS ORDERED: OLANZapine 5 MG RAPDIS TABLET PO PRN (13:30)
[2018-05-27] MEDS ORDERED: PROMETHAZINE HCL 25 MG TABLET PO PRN (13:30)
[2018-05-27] MEDS ORDERED: IBUPROFEN 600 MG TABLET PO PRN (13:30)
[2018-05-27] MEDS ORDERED: CYANOCOBALAMIN 1,000 MCG/ML VIAL IM ONE (13:30)
[2018-05-27] MEDS ORDERED: ACETAMINOPHEN 325 MG TABLET PO PRN (13:30)
[2018-05-27] MEDS ORDERED: HydrOXYzine PAMOATE 50 MG CAPSULE PO PRN ×2 (13:30)
[2018-05-27] MEDS ORDERED: GuaiFENesin/D-METHORPHAN [SUGAR-FREE] 200-20MG/10 ML SYRUP UDCUP PO PRN (13:30)
[2018-05-27] MEDS ORDERED: MAGNESIUM HYDROXIDE SUSPENSION 30 ML UDCUP PO PRN (13:30)
[2018-05-27] MEDS ORDERED: LOPERAMIDE HCL 2 MG CAPSULE PO PRN (13:30)
[2018-05-27] MEDS ORDERED: MAG HYDROX/AL HYDROX/SIMETH ES 30 ML SUSPENSION UDCUP PO PRN ×2 (13:30)
[2018-05-27] MEDS ORDERED: CloNIDine HCL 0.1 MG TABLET PO PRN (13:30)
[2018-05-27 13:41] VITALS: BP 133/70
[2018-05-27 16:00] VITALS: BP 132/66
[2018-05-27 16:30] VITALS: BP 132/66
[2018-05-27] MEDS: ACAMPROSATE CALCIUM 333 MG DR TABLET PO SCH (16:40)
[2018-05-27] MEDS: THIAMINE HCL 100 MG TABLET PO SCH (16:40)
[2018-05-27] MEDS: CloNIDine HCL 0.1 MG TABLET PO SCH ×2 (16:40→22:01)
[2018-05-27 20:00] VITALS: BP 105/68
[2018-05-27] MEDS: DIVALPROEX SODIUM 500 MG ER TABLET PO SCH (20:46)
[2018-05-27] MEDS ORDERED: OLANZapine 5 MG RAPDIS TABLET PO SCH (21:00)
[2018-05-28] VITALS (7 sets, daily range): BP systolic 116–138; BP diastolic 58–82
[2018-05-28] MEDS: CloNIDine HCL 0.1 MG TABLET PO SCH ×4 (06:35→22:21)
[2018-05-28] MEDS: MULTIVITAMINS WITH MINERALS, THERAPEUTIC TABLET PO SCH (09:48)
[2018-05-28] MEDS: ACAMPROSATE CALCIUM 333 MG DR TABLET PO SCH ×3 (09:48→16:43)
[2018-05-28] MEDS: FOLIC ACID 1 MG TABLET PO SCH (09:50)
[2018-05-28] MEDS: THIAMINE HCL 100 MG TABLET PO SCH ×2 (09:50→16:43)
[2018-05-28] MEDS: OLANZapine 10 MG RAPDIS TABLET PO SCH (20:11)
[2018-05-28] MEDS: DIVALPROEX SODIUM 500 MG ER TABLET PO SCH (20:11)
[2018-05-29] MEDS: CloNIDine HCL 0.1 MG TABLET PO SCH ×4 (06:00→22:00)
[2018-05-29 06:10] VITALS: BP 116/56
[2018-05-29 08:32] LABS: BASOPHILS % (AUTO) 0.7 % (0.0-2.0); EOSINOPHILS % (AUTO) 4.5 % (1.0-6.0); HEMOGLOBIN 12.7 g/dL (13.5-17.5); LYMPHOCYTES # (AUTO) 0.9 K/uL (1.0-4.8); LYMPHOCYTES % (AUTO) 13.6 % (22.0-44.0); MEAN CORPUSCULAR HEMOGLOBIN 26.6 pg (26.0-34.0); MEAN CORPUSCULAR HGB CONC 33.3 G/dL (31.0-37.0); MEAN CORPUSCULAR VOLUME 80 fL (80-100); MONOCYTES # (AUTO) 0.4 K/uL (0.1-1.0); MONOCYTES % (AUTO) 6.4 % (2.0-9.0); NEUTROPHILS # (AUTO) 4.8 K/uL (1.8-7.7); NEUTROPHILS % (AUTO) 74.8 % (40.0-70.0); PLATELET COUNT (AUTO) 414 K/uL (150-450); RED BLOOD CELL COUNT(AUTO) 4.76 MIL/uL (4.50-5.90); RED CELL DISTRIBUTION WIDTH 16.6 % (11.5-14.5)
[2018-05-29 08:54] LABS: HEMOGLOBIN A1C 5.4 % (4.5-6.2)
[2018-05-29] MEDS: MULTIVITAMINS WITH MINERALS, THERAPEUTIC TABLET PO SCH (09:01)
[2018-05-29] MEDS: FOLIC ACID 1 MG TABLET PO SCH (09:02)
[2018-05-29] MEDS: THIAMINE HCL 100 MG TABLET PO SCH ×2 (09:02→16:57)
[2018-05-29 09:09] LABS: ALANINE AMINOTRANSFERASE 12 U/L (12-78); ALBUMIN 2.9 g/dL (3.4-5.0); ALKALINE PHOSPHATASE 78 U/L (46-116); ANION GAP 4 mmol/L (8-16); ASPARTATE AMINOTRANSFERASE 12 U/L (15-37); BILIRUBIN,TOTAL 0.3 mg/dL (0.1-1.0); CALCIUM, TOTAL 8.5 mg/dL (8.8-10.5); CARBON DIOXIDE 31 mmol/L (22-29); CHLORIDE 105 mmol/L (98-107); CHOLESTEROL 97 mg/dL (131-200); CREATININE 0.66 mg/dL (0.60-1.30); FREE T4 (FREE THYROXINE) 0.94 ng/dL (0.76-1.46); GLOMERULAR FILTR. RATE CALC > 60 mL/min (>60); GLUCOSE,RANDOM 79 mg/dL (70-110); HDL CHOLESTEROL 32 mg/dL (40-60); LDL CHOL (CALC.) 54 mg/dL (0-130); SODIUM SERUM 140 mmol/L (136-145); THYROID STIMULATING HORMONE 0.75 uIU/mL (0.36-3.74); TOTAL PROTEIN, SERUM 6.9 g/dL (6.4-8.2); TRIGLYCERIDES 54 mg/dL (15-150); UREA NITROGEN, BLOOD 11 mg/dL (7-18); VALPROIC ACID 59 mcg/mL (50-100)
[2018-05-29] MEDS: ACAMPROSATE CALCIUM 333 MG DR TABLET PO SCH ×3 (10:05→16:57)
[2018-05-29 12:18] VITALS: BP 121/72
[2018-05-29] MEDS ORDERED: DIVA500T52 PO (14:22)
[2018-05-29] MEDS ORDERED: OLAN10TA22 PO (14:22)
[2018-05-29] MEDS ORDERED: ACAM333T7 PO (14:22)
[2018-05-29 16:00] VITALS: BP 111/66
[2018-05-29 16:01] VITALS: BP 111/66
[2018-05-29] MEDS: DIVALPROEX SODIUM 500 MG ER TABLET PO SCH (20:41)
[2018-05-29] MEDS: OLANZapine 10 MG RAPDIS TABLET PO SCH (20:41)
[2018-05-30] MEDS: CloNIDine HCL 0.1 MG TABLET PO SCH ×2 (06:00→12:06)
[2018-05-30] MEDS: MULTIVITAMINS WITH MINERALS, THERAPEUTIC TABLET PO SCH (08:18)
[2018-05-30] MEDS: ACAMPROSATE CALCIUM 333 MG DR TABLET PO SCH ×2 (08:18→12:06)
[2018-05-30] MEDS: THIAMINE HCL 100 MG TABLET PO SCH (08:18)
[2018-05-30] MEDS: FOLIC ACID 1 MG TABLET PO SCH (08:18)
[2018-05-30 08:34] VITALS: BP 101/65
[2018-05-30 08:36] VITALS: BP 101/65
[2018-05-30] MEDS ORDERED: OLAN10TA3 PO (08:51)
[2018-05-30] MEDS ORDERED: ACAM333T7 PO (08:51)
[2018-05-30] MEDS ORDERED: LOPERAMIDE HCL 2 MG CAPSULE PO PRN (13:30)
== END 2018-05-30 12:15 | disposition home or self-care (01) | DRG 750 ==
LOC: B3A 04:30 → EDSTATUS 04:42
PROVIDERS: ADMIT Psychiatry & Neurology Psychiatry; ATTEND Psychiatry & Neurology Psychiatry
DX: F25.9 Schizoaffective disorder, unspecified (principal); Z59.0 Homelessness; E78.5 Hyperlipidemia, unspecified; F17.210 Nicotine dependence, cigarettes, uncomplicated; F60.0 Paranoid personality disorder; J45.909 Unspecified asthma, uncomplicated; Z86.718 Personal history of other venous thrombosis and embolism; Z90.49 Acquired absence of other specified parts of digestive tract; Z88.0 Allergy status to penicillin; Z91.19 Patient's noncompliance with other medical treatment and regimen
CPT/HCPCS: 83036; 84439; 84443; J3420

== ENCOUNTER 2018-06-21 09:14 | Inpatient (IN) | payer MEDICAID ==
[~2018-06-21] VITALS: Ht 185.4 cm; Wt 91.4 kg
[~2018-06-21 09:14] MED LIST changes: +ACAM333T7 PO; +DIVA500T52 PO; +OLAN10TA22 PO
[2018-06-21 10:26] VITALS: BP 101/64
[2018-06-21] MEDS ORDERED: ZOLPIDEM TARTRATE 10 MG TABLET PO PRN (10:45)
[2018-06-21] MEDS ORDERED: LORazepam 2 MG TABLET PO PRN (10:45)
[2018-06-21] MEDS ORDERED: HALOPERIDOL 5 MG TABLET PO PRN (11:00)
[2018-06-21] MEDS ORDERED: OLAN10TA3 PO (11:06)
[2018-06-21] MEDS ORDERED: NALT50TA6 PO (11:06)
[2018-06-21] MEDS ORDERED: DIVA-78 PO (11:06)
[2018-06-21] MEDS ORDERED: ACAM333T7 PO (11:06)
[2018-06-21 13:00] VITALS: BP 112/70
[2018-06-21] MEDS: ACAMPROSATE CALCIUM 333 MG DR TABLET PO SCH (16:24)
[2018-06-21 16:37] VITALS: BP 113/65
[2018-06-21] MEDS: OLANZapine 10 MG TABLET PO SCH (20:52)
[2018-06-21] MEDS: DIVALPROEX SODIUM 500 MG DR TABLET PO SCH (20:52)
[2018-06-22 08:02] LABS: HEMATOCRIT 39.1 % (41-53); HEMOGLOBIN 12.8 g/dL (13.5-17.5); LYMPHOCYTES # (AUTO) 1.4 K/uL (1.0-4.8); LYMPHOCYTES % (AUTO) 27.5 % (22.0-44.0); MEAN CORPUSCULAR HEMOGLOBIN 26.3 pg (26.0-34.0); MEAN CORPUSCULAR HGB CONC 32.8 G/dL (31.0-37.0); MEAN CORPUSCULAR VOLUME 80 fL (80-100); MONOCYTES # (AUTO) 0.4 K/uL (0.1-1.0); MONOCYTES % (AUTO) 7.2 % (2.0-9.0); NEUTROPHILS # (AUTO) 2.9 K/uL (1.8-7.7); NEUTROPHILS % (AUTO) 59.3 % (40.0-70.0); PLATELET COUNT (AUTO) 308 K/uL (150-450); RED BLOOD CELL COUNT(AUTO) 4.88 MIL/uL (4.50-5.90); RED CELL DISTRIBUTION WIDTH 16.8 % (11.5-14.5)
[2018-06-22 08:31] LABS: APPEARANCE,URINE CLOUDY (CLEAR); GLUCOSE, URINE (UA) NEGATIVE (NEGATIVE); KETONES,URINE NEGATIVE (NEGATIVE); LEUKOCYTE ESTERASE ,URINE NEGATIVE (NEGATIVE); NITRATE,URINE NEGATIVE (NEGATIVE); OCCULT BLOOD,URINE NEGATIVE (NEGATIVE); PROTEIN,URINE NEGATIVE (NEGATIVE)
[2018-06-22 08:45] LABS: AMPHET/METH SCREEN,URINE POSITIVE (NEGATIVE); BARBITURATE SCREEN, URINE NEGATIVE (NEGATIVE); BENZODIAZEPINES SCREEN,URINE NEGATIVE (NEGATIVE); CANNABINOID SCREEN,URINE NEGATIVE (NEGATIVE); COCAINE SCREEN,URINE NEGATIVE (NEGATIVE); METHADONE SCREEN, URINE NEGATIVE (NEGATIVE); OPIATE SCREEN,URINE NEGATIVE (NEGATIVE)
[2018-06-22 08:46] LABS: PHENCYCLIDINE SCREEN,URINE NEGATIVE (NEGATIVE)
[2018-06-22 08:55] LABS: ALANINE AMINOTRANSFERASE 11 U/L (12-78); ALBUMIN 3.1 g/dL (3.4-5.0); ALKALINE PHOSPHATASE 62 U/L (46-116); ANION GAP 9 mmol/L (8-16); ASPARTATE AMINOTRANSFERASE 10 U/L (15-37); BILIRUBIN,TOTAL 0.3 mg/dL (0.1-1.0); CARBON DIOXIDE 27 mmol/L (22-29); CHLORIDE 106 mmol/L (98-107); CHOL/HDL RATIO 3.8 (4.2-7.3); CHOLESTEROL 113 mg/dL (131-200); CREATININE 0.73 mg/dL (0.60-1.30); FREE T4 (FREE THYROXINE) 0.92 ng/dL (0.76-1.46); GLOMERULAR FILTR. RATE CALC > 60 mL/min (>60); GLUCOSE,RANDOM 79 mg/dL (70-110); HDL CHOLESTEROL 30 mg/dL (40-60); LDL CHOL (CALC.) 69 mg/dL (0-130); POTASSIUM 3.9 mmol/L (3.5-5.1); SODIUM SERUM 142 mmol/L (136-145); THYROID STIMULATING HORMONE 0.91 uIU/mL (0.36-3.74); TOTAL PROTEIN, SERUM 7.1 g/dL (6.4-8.2); TRIGLYCERIDES 70 mg/dL (15-150); UREA NITROGEN, BLOOD 14 mg/dL (7-18)
[2018-06-22 09:09] LABS: HEMOGLOBIN A1C 5.8 % (4.5-6.2)
[2018-06-22 09:16] LABS: BILIRUBIN,URINE PRELIM. POSITIVE (NEGATIVE)
[2018-06-22 09:22] LABS: BACTERIA,URINE Rare /HPF (None Seen); RBC,URINE 0-2 /HPF (0-2); SQUAMOUS EPITHELIAL CELL,UR Rare /LPF (None Seen); WBC,URINE 0-2 /HPF (0-5)
[2018-06-22 09:42] VITALS: BP 109/60
[2018-06-22] MEDS: NALTREXONE HCL 50 MG TABLET PO SCH (10:13)
[2018-06-22] MEDS: ACAMPROSATE CALCIUM 333 MG DR TABLET PO SCH ×3 (10:14→16:27)
[2018-06-22 18:00] VITALS: BP 111/68
[2018-06-22] MEDS: DIVALPROEX SODIUM 500 MG DR TABLET PO SCH (20:21)
[2018-06-22] MEDS: OLANZapine 10 MG TABLET PO SCH (20:21)
[2018-06-23 08:00] VITALS: BP 112/62
[2018-06-23] MEDS: ACAMPROSATE CALCIUM 333 MG DR TABLET PO SCH ×3 (09:45→17:13)
[2018-06-23] MEDS: NALTREXONE HCL 50 MG TABLET PO SCH (09:45)
[2018-06-23 16:26] VITALS: BP 112/63
[2018-06-23] MEDS ORDERED: GuaiFENesin/D-METHORPHAN [SUGAR-FREE] 200-20MG/10 ML SYRUP UDCUP PO PRN (16:30)
[2018-06-23] MEDS ORDERED: MAGNESIUM HYDROXIDE SUSPENSION 30 ML UDCUP PO PRN (16:30)
[2018-06-23] MEDS ORDERED: LOPERAMIDE HCL 2 MG CAPSULE PO PRN (16:30)
[2018-06-23] MEDS ORDERED: HydrOXYzine PAMOATE 50 MG CAPSULE PO PRN (16:30)
[2018-06-23] MEDS ORDERED: PROMETHAZINE HCL 25 MG TABLET PO PRN (16:30)
[2018-06-23] MEDS ORDERED: MAG HYDROX/AL HYDROX/SIMETH ES 30 ML SUSPENSION UDCUP PO PRN (16:30)
[2018-06-23] MEDS ORDERED: ACETAMINOPHEN 325 MG TABLET PO PRN (16:30)
[2018-06-23] MEDS ORDERED: OLANZapine 5 MG RAPDIS TABLET PO PRN (16:30)
[2018-06-23] MEDS: THIAMINE HCL 100 MG TABLET PO SCH (17:14)
[2018-06-23] MEDS: DIVALPROEX SODIUM 500 MG DR TABLET PO SCH (21:28)
[2018-06-23] MEDS: OLANZapine 10 MG TABLET PO SCH (21:28)
[2018-06-24] MEDS: THIAMINE HCL 100 MG TABLET PO SCH ×2 (08:34→16:29)
[2018-06-24] MEDS: FOLIC ACID 1 MG TABLET PO SCH (08:34)
[2018-06-24] MEDS: MULTIVITAMINS WITH MINERALS, THERAPEUTIC TABLET PO SCH (08:34)
[2018-06-24] MEDS: NALTREXONE HCL 50 MG TABLET PO SCH (08:34)
[2018-06-24] MEDS: ACAMPROSATE CALCIUM 333 MG DR TABLET PO SCH ×3 (08:34→16:29)
[2018-06-24 16:33] VITALS: BP 100/67
[2018-06-24] MEDS: DIVALPROEX SODIUM 500 MG DR TABLET PO SCH (21:00)
[2018-06-24] MEDS: OLANZapine 10 MG TABLET PO SCH (21:00)
[2018-06-25 08:00] VITALS: BP 105/60
[2018-06-25] MEDS: NALTREXONE HCL 50 MG TABLET PO SCH (09:29)
[2018-06-25] MEDS: ACAMPROSATE CALCIUM 333 MG DR TABLET PO SCH ×3 (09:29→17:06)
[2018-06-25] MEDS: THIAMINE HCL 100 MG TABLET PO SCH ×2 (09:30→17:06)
[2018-06-25] MEDS: MULTIVITAMINS WITH MINERALS, THERAPEUTIC TABLET PO SCH (09:30)
[2018-06-25] MEDS: FOLIC ACID 1 MG TABLET PO SCH (09:30)
[2018-06-25 16:34] VITALS: BP 115/65
[2018-06-25] MEDS: OLANZapine 10 MG TABLET PO SCH (21:00)
[2018-06-25] MEDS: DIVALPROEX SODIUM 500 MG DR TABLET PO SCH (21:00)
[2018-06-26 00:55] VITALS: BP 106/72
[2018-06-26 08:48] VITALS: BP 92/63
[2018-06-26] MEDS: THIAMINE HCL 100 MG TABLET PO SCH ×2 (09:35→16:11)
[2018-06-26] MEDS: NALTREXONE HCL 50 MG TABLET PO SCH (09:35)
[2018-06-26] MEDS: FOLIC ACID 1 MG TABLET PO SCH (09:35)
[2018-06-26] MEDS: ACAMPROSATE CALCIUM 333 MG DR TABLET PO SCH ×3 (09:35→16:11)
[2018-06-26] MEDS: MULTIVITAMINS WITH MINERALS, THERAPEUTIC TABLET PO SCH (09:36)
[2018-06-26 16:29] VITALS: BP 105/60
[2018-06-26] MEDS: DIVALPROEX SODIUM 500 MG DR TABLET PO SCH (20:47)
[2018-06-26] MEDS: OLANZapine 10 MG TABLET PO SCH (20:48)
[2018-06-27 05:43] VITALS: BP 108/71
[2018-06-27] MEDS: ACAMPROSATE CALCIUM 333 MG DR TABLET PO SCH (09:00)
[2018-06-27] MEDS: FOLIC ACID 1 MG TABLET PO SCH ×2 (09:00→09:28)
[2018-06-27] MEDS: THIAMINE HCL 100 MG TABLET PO SCH ×3 (09:00→16:51)
[2018-06-27] MEDS: NALTREXONE HCL 50 MG TABLET PO SCH ×2 (09:00→09:35)
[2018-06-27] MEDS: MULTIVITAMINS WITH MINERALS, THERAPEUTIC TABLET PO SCH ×2 (09:00→09:27)
[2018-06-27 16:57] VITALS: BP 94/60
[2018-06-27] MEDS: OLANZapine 10 MG TABLET PO SCH (20:17)
[2018-06-27] MEDS: DIVALPROEX SODIUM 500 MG DR TABLET PO SCH (20:17)
[2018-06-28 00:16] VITALS: BP 90/62
[2018-06-28 08:02] VITALS: BP 123/61
[2018-06-28] MEDS: NALTREXONE HCL 50 MG TABLET PO SCH (09:06)
[2018-06-28] MEDS: THIAMINE HCL 100 MG TABLET PO SCH ×2 (09:06→16:17)
[2018-06-28] MEDS: FOLIC ACID 1 MG TABLET PO SCH (09:06)
[2018-06-28] MEDS: MULTIVITAMINS WITH MINERALS, THERAPEUTIC TABLET PO SCH (09:06)
[2018-06-28 16:25] VITALS: BP 103/63
[2018-06-28] MEDS: DIVALPROEX SODIUM 500 MG DR TABLET PO SCH (20:13)
[2018-06-28] MEDS: OLANZapine 10 MG TABLET PO SCH (20:13)
[2018-06-29 03:16] VITALS: BP 110/73
[2018-06-29] MEDS: MULTIVITAMINS WITH MINERALS, THERAPEUTIC TABLET PO SCH (08:36)
[2018-06-29] MEDS: FOLIC ACID 1 MG TABLET PO SCH (08:36)
[2018-06-29] MEDS: THIAMINE HCL 100 MG TABLET PO SCH ×2 (08:36→16:40)
[2018-06-29] MEDS: NALTREXONE HCL 50 MG TABLET PO SCH (08:36)
[2018-06-29 10:23] VITALS: BP 111/60
[2018-06-29 16:00] VITALS: BP 121/71
[2018-06-29] MEDS: OLANZapine 10 MG TABLET PO SCH (20:13)
[2018-06-29] MEDS: DIVALPROEX SODIUM 500 MG DR TABLET PO SCH (20:13)
[2018-06-30 01:23] VITALS: BP 125/62
[2018-06-30 08:59] VITALS: BP 140/85
[2018-06-30] MEDS: MULTIVITAMINS WITH MINERALS, THERAPEUTIC TABLET PO SCH (09:15)
[2018-06-30] MEDS: FOLIC ACID 1 MG TABLET PO SCH (09:15)
[2018-06-30] MEDS: THIAMINE HCL 100 MG TABLET PO SCH ×2 (09:15→16:38)
[2018-06-30] MEDS: NALTREXONE HCL 50 MG TABLET PO SCH (09:15)
[2018-06-30 16:30] VITALS: BP 118/76
[2018-06-30] MEDS: OLANZapine 10 MG TABLET PO SCH (21:00)
[2018-06-30] MEDS: DIVALPROEX SODIUM 500 MG DR TABLET PO SCH (21:00)
[2018-07-01 02:25] VITALS: BP 118/70
[2018-07-01 08:40] VITALS: BP 91/46
[2018-07-01] MEDS: NALTREXONE HCL 50 MG TABLET PO SCH (09:06)
[2018-07-01] MEDS: FOLIC ACID 1 MG TABLET PO SCH (09:06)
[2018-07-01] MEDS: THIAMINE HCL 100 MG TABLET PO SCH ×2 (09:06→16:31)
[2018-07-01] MEDS: MULTIVITAMINS WITH MINERALS, THERAPEUTIC TABLET PO SCH (09:06)
[2018-07-01] MEDS ORDERED: OLAN10TA20 PO (15:48)
[2018-07-01] MEDS ORDERED: NALT50TA PO (15:48)
[2018-07-01] MEDS ORDERED: DIVA-78 PO (15:48)
[2018-07-01 16:27] VITALS: BP 121/86
== END 2018-07-01 17:00 | disposition home or self-care (01) | DRG 750 ==
LOC: B2S 11:02
PROVIDERS: ADMIT Psychiatry & Neurology Psychiatry; ATTEND Psychiatry & Neurology Psychiatry
DX: F20.0 Paranoid schizophrenia (principal); R45.851 Suicidal ideations; R45.850 Homicidal ideations; G47.00 Insomnia, unspecified; Z91.14 Patient's other noncompliance with medication regimen; Z91.19 Patient's noncompliance with other medical treatment and regimen; R41.843 Psychomotor deficit; Z88.0 Allergy status to penicillin; F15.90 Other stimulant use, unspecified, uncomplicated
CPT/HCPCS: 80307; 83036; 84439; 84443; 87081

== ENCOUNTER 2025-02-02 14:32 | Inpatient (IN) | payer MEDICAID, OTHER ==
[~2025-02-02] VITALS: Ht 182.9 cm; Wt 99.0 kg
[~2025-02-02 14:32] MED LIST changes: -ACAM333T7 PO; +DIVA-112 PO; -DIVA-78 PO; -DIVA500T52 PO; +OLAN10 PO; -OLAN10TA22 PO; -OLAN10TA3 PO
[2025-02-02 15:46] LABS: PLATELET COUNT (AUTO) 351 K/uL (150-450); RED BLOOD CELL COUNT(AUTO) 4.68 MIL/uL (4.50-5.90); RED CELL DISTRIBUTION WIDTH 13.8 % (11.5-14.5); WHITE BLOOD COUNT (AUTO) 7.5 K/uL (4.5-11.0)
[2025-02-02 15:57] LABS: CALCIUM, TOTAL 8.7 mg/dL (8.8-10.5); CREATININE 0.90 mg/dL (0.60-1.30); GLOMERULAR FILTR. RATE CALC > 60 mL/min (>60); GLUCOSE,RANDOM 92 mg/dL (70-110); SODIUM SERUM 136 mmol/L (136-145); UREA NITROGEN, BLOOD 15 mg/dL (7-18)
[2025-02-02 16:02] LABS: ASPARTATE AMINOTRANSFERASE 31 U/L (15-37); TOTAL PROTEIN, SERUM 8.0 g/dL (6.4-8.2)
[2025-02-02 16:04] LABS: TROPONIN I-HIGH SENSITIVITY Less Than 4 ng/L (<76)
[2025-02-02] MEDS ORDERED: HEPARIN SODIUM,PORCINE 5,000 UNITS/ML VIAL IVP PRN ×2 (16:15)
[2025-02-02] MEDS ORDERED: ONDANSETRON HCL 4 MG/2 ML VIAL IVP PRN (16:45)
[2025-02-02] MEDS ORDERED: ZOLPIDEM TARTRATE 5 MG TABLET PO PRN (16:45)
[2025-02-02] MEDS ORDERED: BISACODYL 10 MG RECTAL RECTAL SUPPOSITORY PR PRN (16:45)
[2025-02-02] MEDS: HEPARIN SODIUM,PORCINE 5,000 UNITS/ML VIAL IVP ONE (18:12)
[2025-02-02] MEDS: HEPARIN SODIUM 25000 UNITS/D5W 250 ML IV PRN (18:13)
[2025-02-02] MEDS: DOCUSATE SODIUM 100 MG CAPSULE PO SCH (20:18)
[2025-02-02 21:10] VITALS: BP 105/67; PULSE 54; RESP 18; TEMP 98.1; O2SAT 99
[2025-02-02] MEDS: DIVALPROEX SODIUM 500 MG DR TABLET PO SCH (22:53)
[2025-02-02 23:54] VITALS: BP 104/62; PULSE 53; RESP 18; TEMP 98.2; O2SAT 97
[2025-02-03] VITALS (8 sets, daily range): BP systolic 104–116; BP diastolic 60–74; PULSE 56–90; RESP 17–18; TEMP 97.7–98.4; O2SAT 95–100
[2025-02-03] MEDS ORDERED: HEPARIN SODIUM,PORCINE 5,000 UNITS/ML VIAL SQ SCH
[2025-02-03] MEDS ORDERED: HEPARIN SODIUM 25000 UNITS/D5W 250 ML IV PRN (07:45)
[2025-02-03] MEDS ORDERED: HEPARIN SODIUM,PORCINE 5,000 UNITS/ML VIAL IVP PRN ×3 (07:45)
[2025-02-03] MEDS: PANTOPRAZOLE SODIUM 40 MG DR TABLET PO SCH (07:59)
[2025-02-03] MEDS: NALTREXONE HCL 50 MG TABLET PO SCH (07:59)
[2025-02-03 08:16] LABS: APPEARANCE,URINE CLEAR (CLEAR); GLUCOSE, URINE (UA) NEGATIVE (NEGATIVE); LEUKOCYTE ESTERASE ,URINE NEGATIVE (NEGATIVE); NITRATE,URINE NEGATIVE (NEGATIVE); OCCULT BLOOD,URINE NEGATIVE (NEGATIVE); PH,URINE DRUG SCREEN 6.5 (5.0-8.0); SPECIFIC GRAVITIY, URINE 1.024 (1.003-1.030)
[2025-02-03 08:23] LABS: PLATELET COUNT (AUTO) 371 K/uL (150-450); RED BLOOD CELL COUNT(AUTO) 4.73 MIL/uL (4.50-5.90); RED CELL DISTRIBUTION WIDTH 13.9 % (11.5-14.5); WHITE BLOOD COUNT (AUTO) 8.1 K/uL (4.5-11.0)
[2025-02-03 08:35] LABS: AMPHET/METH SCREEN,URINE NEGATIVE (NEGATIVE); BARBITURATE SCREEN, URINE NEGATIVE (NEGATIVE); CANNABINOID SCREEN,URINE NEGATIVE (NEGATIVE); COCAINE SCREEN,URINE NEGATIVE (NEGATIVE); METHADONE SCREEN, URINE NEGATIVE (NEGATIVE)
[2025-02-03 08:37] LABS: CREATININE 0.76 mg/dL (0.60-1.30); GLUCOSE,RANDOM 84 mg/dL (70-110); SODIUM SERUM 142 mmol/L (136-145); UREA NITROGEN, BLOOD 13 mg/dL (7-18)
[2025-02-03 08:38] LABS: CALCIUM, TOTAL 8.6 mg/dL (8.8-10.5); GLOMERULAR FILTR. RATE CALC > 60 mL/min (>60)
[2025-02-03 08:43] LABS: ALCOHOL, URINE DRUG SCREEN NEGATIVE (NEGATIVE)
[2025-02-03] MEDS: ACETAMINOPHEN 325 MG TABLET PO PRN (09:49)
[2025-02-03] MEDS: HEPARIN SODIUM 25000 UNITS/D5W 250 ML IV PRN (09:52)
[2025-02-03] MEDS: HEPARIN SODIUM,PORCINE 5,000 UNITS/ML VIAL IVP PRN (14:05)
[2025-02-03 19:05] LABS: COVID AG,FIA SOURCE NASAL SWAB
[2025-02-03 19:25] LABS: SARS-COV2 (COVID) ANTIGEN,FIA Negative (Negative)
[2025-02-04 00:01] VITALS: BP 118/68; PULSE 71; RESP 18; TEMP 98.8; O2SAT 94
[2025-02-04 03:42] VITALS: BP 112/65; PULSE 80; RESP 18; TEMP 97.9; O2SAT 94
[2025-02-04 04:26] LABS: PLATELET COUNT (AUTO) 380 K/uL (150-450); RED BLOOD CELL COUNT(AUTO) 4.49 MIL/uL (4.50-5.90); RED CELL DISTRIBUTION WIDTH 13.7 % (11.5-14.5); WHITE BLOOD COUNT (AUTO) 6.7 K/uL (4.5-11.0)
[2025-02-04 04:36] LABS: CALCIUM, TOTAL 8.4 mg/dL (8.8-10.5); CREATININE 0.77 mg/dL (0.60-1.30); GLOMERULAR FILTR. RATE CALC > 60 mL/min (>60); GLUCOSE,RANDOM 107 mg/dL (70-110); SODIUM SERUM 141 mmol/L (136-145); UREA NITROGEN, BLOOD 15 mg/dL (7-18)
[2025-02-04 08:18] VITALS: BP 103/75; PULSE 66; RESP 16; TEMP 97.7; O2SAT 99
[2025-02-04 12:00] VITALS: BP 113/73; PULSE 76; RESP 17; TEMP 97.5; O2SAT 99
[2025-02-04 15:57] VITALS: BP 122/77; PULSE 67; RESP 18; TEMP 97.7; O2SAT 99
[2025-02-04] MEDS: APIXABAN 5 MG TABLET PO SCH (17:05)
[2025-02-05 04:00] VITALS: BP 111/75; PULSE 58; RESP 18; TEMP 98.4; O2SAT 97
[2025-02-05] MEDS: MAGNESIUM HYDROXIDE SUSPENSION 30 ML UDCUP PO PRN (06:25)
[2025-02-05 07:20] VITALS: BP 110/71; PULSE 60; RESP 18; TEMP 97.5; O2SAT 96
[2025-02-05] MEDS ORDERED: APIX5TAB PO (10:49)
[2025-02-05] MEDS ORDERED: NALT50TA33 PO (10:50)
== END 2025-02-05 13:20 | DRG 299 ==
LOC: EMS 14:32 → EDH 16:39 → 5S 21:05 → 6N 02-04 20:19
PROVIDERS: ADMIT Internal Medicine; ATTEND Internal Medicine
DX: I82.412 Acute embolism and thrombosis of left femoral vein (principal); I26.99 Other pulmonary embolism without acute cor pulmonale; I82.432 Acute embolism and thrombosis of left popliteal vein; F32.A Depression, unspecified; I82.442 Acute embolism and thrombosis of left tibial vein; R00.1 Bradycardia, unspecified; Z20.822 Contact with and (suspected) exposure to COVID-19; K44.9 Diaphragmatic hernia without obstruction or gangrene; Z87.891 Personal history of nicotine dependence; Z88.0 Allergy status to penicillin; Z79.899 Other long term (current) drug therapy
CPT/HCPCS: 71045; 71275; 80048; 80076; 80307; 81003; 83880; 84443; 84484; 85025; 85610; 85730; 86850; 86900; 86901; 93005; 93306; 93971; 99285; J1644; J7050; 36415-L1; 36415-TC